=== PATIENT | female | born 1950 | race Caucasian/White ===

== ENCOUNTER 2022-03-24 07:56 | Outpatient (CLI) | payer MEDICARE, BC, SELFPAY ==
[2022-03-24 11:13] LABS: Glucose* 112 mg/dL (60-115)
[2022-03-29 16:01] LABS: Cholesterol* 181 mg/dL (90-199)
[2022-03-29 16:02] LABS: HDL Cholesterol* 87 mg/dL (>=50); LDL Cholesterol Calculated 77 mg/dL (<100); Triglycerides* 85 mg/dL (40-149)
== END 2022-03-24 07:57 | disposition home or self-care (01) ==
LOC: NFLDREF 07:57
PROVIDERS: PCP Family Medicine; Visit Provider Family Medicine
DX: Z00.00 Encounter for general adult medical examination without abnormal findings (principal); R73.03 Prediabetes; E78.5 Hyperlipidemia, unspecified
CPT/HCPCS: 80061; 82947

== ENCOUNTER 2022-10-04 13:25 | Outpatient (CLI) | payer MEDICARE, BC, SELFPAY ==
--- NOTE | 2022-10-04 13:40 | CRLHL7_ITS ---
For Patients: As a result of the Century Cures Act, medical imaging exams and procedure reports are released immediately into your electronic medical record. You may view this report before your referring provider. If you have questions, please contact your health care provider. BILATERAL SCREENING MAMMOGRAM WITH COMPUTER-AIDED DETECTION AND TOMOSYNTHESIS TECHNIQUE: CC and MLO views were obtained. These mammographic images have been obtained using full-field digital technique. These mammographic images were interpreted with the benefit of computer-aided detection. Breast Tomosynthesis was used in this interpretation. COMPARISON FILM: 09/08/21, 08/24/20, 08/22/19 FINDINGS: There are scattered areas of fibroglandular density IMPRESSION: There is no radiographic evidence for malignancy. ASSESSMENT: BI-RADS Category 2: Benign RECOMMENDATION: Routine screening mammogram in 1 year. A lay language report of this examination will be provided to the patient. Pierce Temple M.D. Diagnostic Radiologist [email or web address] [email or web address] Transcribed: 4:56 p.deana becerril/Dictated by: Pierce Temple MD @ 10/05/2022 10:02:00 AM (Electronically Signed)
== END 2022-10-04 13:26 | disposition home or self-care (01) ==
LOC: MAMMO 13:25
PROVIDERS: PCP Family Medicine; Visit Provider Family Medicine
DX: Z12.31 Encounter for screening mammogram for malignant neoplasm of breast (principal)
CPT/HCPCS: 77063; 77067

== ENCOUNTER 2023-03-08 13:38 | Outpatient (CLI) | payer MEDICARE, BC, SELFPAY | END 2023-03-08 13:39 | disposition home or self-care (01) | LOC: NFLDREF 03-17 08:12 | PROVIDERS: PCP Family Medicine; Referring Provider Family Medicine; Visit Provider Family Medicine | DX: R53.83 Other fatigue (principal) | CPT/HCPCS: 80048 ==

== ENCOUNTER 2023-05-30 07:30 | Outpatient (CLI) | payer MEDICARE, BC, SELFPAY | END 2023-05-30 07:31 | disposition home or self-care (01) | LOC: NFLDREF 06-01 06:19 | PROVIDERS: PCP Family Medicine; Referring Provider Family Medicine; Visit Provider Family Medicine | DX: E78.5 Hyperlipidemia, unspecified (principal); R73.03 Prediabetes | CPT/HCPCS: 80053; 80061 ==

== ENCOUNTER 2023-12-20 10:32 | Outpatient (CLI) | payer MEDICARE, BC, SELFPAY ==
--- OUTSIDE RECORDS SUMMARY | 2023-12-20 10:34 | XMS_ITS | Clinical Summary ---
Author Organization Formerly [facility] Address [address], [place] [address] Care Team Providers Care Scaler Name Role Phone No Primary/Referring, Phy Primary Care Provider Unavailable Source Comments You are receiving this document as you are listed as the primary care provider,follow-up provider, or the patient has been referred to you for consultation.This is in compliance with the Medicare and[facility] E[facility] Incentive Program,which states Providers who transition their patient to another setting of careor provider of care or refers their patient to another provider of care shouldprovide summary care record for each transition of care or referral. [employer] Allergies Active Allergy Reactions Criticality Noted Date Comments Dust Mite Extract Sneezing Low 11/26/2009 Medications Medication Sig Dispensed Refills Start Date End Date Status simvastatin (AKA ZOCOR) 20 MG tablet Take 20 mg by mouth daily at bedtime. Active cholecalciferol (VITAMIN D3) 1000 UNITS tablet Take 1 Tablet (1,000 Units) by mouth daily. Active B Complex Vitamins (B COMPLEX OR) Active fluocinonide (LIDEX) 0.05 % ointment Apply topically two times a day. 60 g 11 10/08/2018 Active fluocinonide (LIDEX) 0.05 % gel Apply topically two times a day. 60 g 11 06/28/2021 Active chlorhexidine gluconate (PERIDEX) 0.12 % solution Swish and spit 15 mL in mouth two times a day. 473 mL 01/20/2022 Active amoxicillin (AMOXIL) 500 MG capsule Take 1 Capsule (500 mg) by mouth three times a day. Take until gone 21 Capsule 02/22/2022 Active fluocinonide (LIDEX) 0.05 % gel Apply topically two times a day. 60 g 11 08/25/2022 Active Active Problems No known active problems Immunizations Name Administration Dates Next Due Pfizer Monovalent 12+ Purple Top 09/11/2020,07/28 Social History Tobacco Use Types Packs/Day Years Used Date Smoking Tobacco: Former Smokeless Tobacco: Never Alcohol Use Standard Drinks/Week Comments Yes 3 (1 standard drink = 0.6 oz pur e alcohol) Sex and Gender Information Value Date Recorded Sex Assigned at Not on file Gender Identity Not on file Sexual Orientation Not on file Last Filed Vital Signs Vital Sign Reading Time Taken Comments Blood Pressure 160/75 03/26/2021 9:10 AM CDT Pulse 61 08/25/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 Temperature 36.4 ??C (97.5 ??F) 03/26/2021 8:40 AM CD T Respiratory Rate 16 03/26/2021 9:10 AM CDT Oxygen Saturation 99% 03/26/2021 9:10 AM CDT Inhaled Oxygen Concentration - - Weight 73.5 kg (162 lb) 03/26/2021 6:25 AM CDT Height 175.3 cm (5' 9) 03/26/2021 6:25 AM CDT Body Mass Index 23.92 03/26/2021 6:25 AM CDT Plan of Treatment Health Maintenance Due Date Last Done Comments Hep C Screening (Preventive Services) 1950 Medicare Annual Wellness Visit 1950 Cholesterol 1994 Colon Cancer Screening Plan Due 03/06/2009 03/05/2009 Zoster/Shingles (2 of 3) 12/21/2011 10/26/2011 Dexa 2014 Mammogram 10/04/2014 10/04/2013 COVID-19 Vaccine ( season) 2023 03/22/2021, 09/11/2020, 08/21/2020 Influenza (Season Ended) 2024 021, 04/10/2020, 05/03/2019, Additional history exists DTaP/Tdap/Td (4 - Tdap) 03/31/2027 03/31/20 17, 03/31/2016, 01/26/2006 HepA Aged Out 02/05/1999, 07/30/1998 No lo nger eligible based on patient's age to complete this topic Pneumococcal 65+ Yrs Completed 07/17/2018, 03/31/20 17 HepB Aged Out No longer eligi ble based on patient's age to complete this topic Hib Aged Out No longer eligi ble based on patient's age to complete this topic IPV (Polio) Aged Out No longer eligi ble based on patient's age to complete this topic MCV4 Aged Out No longer eligi ble based on patient's age to complete this topic Medical Devices Implanted Type Area Machine Whitener Device Identifier Shelf Expiration Date Model / Serial / Lot Scr Canc Hex 4.0x35 P-Thrd - [id number] Implanted:Qty: 2 on 03/26/2021 by Endy Segura MD at [facility] [employer] Right: [employer] [id number] / 0 / 0 Scr Canc Hex 4.0x40 P-Thrd - [id number] Implanted:Qty: 1 on 03/26/2021 by Endy Segura MD at [employer] Right: [employer] [id number] / 0 / 0 Care Teams Scaler Relationship Specialty Start Date End Date No Primary/Referring, Phy PCP - General 01/16/18
--- OUTSIDE RECORDS SUMMARY | 2023-12-20 10:35 | XMS_ITS | Clinical Summary ---
Author Organization [employer] [facility] Address [place], [place] [address] Care Team Providers Care Size Stamper Name Role Phone Gretchen Sen Primary Care Provider Allergies No known active allergies Medications Medication Sig Dispensed Refills Start Date End Date Status MULTIVITAMIN TAB take 1 tablet by oral route once daily with food 0 05/03/2007 Active cholecalciferol (VITAMIN D) 1,000 unit capsule Take 2 capsules by mouth once daily. 0 2013 Active traZODone (DESYREL) 50 mg tabletIndications:Slee p pattern disturbance Take 0.5-1 tablets by mouth at bedtime if needed for Sleep. 45 tablet 3 03/31/2017 Active simvastatin (ZOCOR) 20 mg tabletIndications:Mixe d hyperlipidemia TAKE ONE TABLET BY MOUTH EVERY DAY IN THE EVENING 30 tablet 04/03/2018 Active Active Problems Problem Noted Date Diagnosed Date Sensorineural hearing loss, bilateral 04/29/2010 Family history of colonic polyps 03/05/2009 Overview: Colonoscopy 02/2009 normal repeat in 5 years Mixed hyperlipidemia 01/12/2007 Immunizations Name Administration Dates Next Due Hepatitis A (Adult) 02/05/1999,07/30/1998 Influenza, IIV3 (Age >=3 years) 04/09/2013,04/26,03/17/2010 Pneumococcal conj 13-Valent (Prevnar 13) 017 Tdap 03/31/2017,01/26/2006 Zoster (Zostavax-ZVL, live) 10/26/2011 Family History Medical History Relation Name Comments Hypertension Brother 1 and mother. Cancer Brother 2 stage IV Arthritis Father Arthritis Mother Heart Disease Mother multiple VA's in 80's, CHF. Hypertension Mother Cancer-colon Neg. Good Health Sister 1 Good Health Sister 2 Cancer-breast No Family History Relation Name Status Comments Brother 1 Brother 2 Father Mother Neg. Sister 1 Sister 2 Social History Tobacco Use Types Packs/Day Years Used Date Smoking Tobacco: Former Cigarettes Q uit: 06/26/1977 Smokeless Tobacco: Never Tobacco Cessation:Counseling Given: Yes Alcohol Use Standard Drinks/Week Comments Yes 3.3 (1 standard drin k = 0.6 oz pure alcohol) drinks red wine 4 times per week Sex and Gender Information Value Date Recorded Sex Assigned at Not on file Gender Identity Not on file Sexual Orientation Not on file Obstetrics History Para Term AB IAB SAB Ectopic Multiple Livin g Live Births 0 Last Filed Vital Signs Vital Sign Reading Time Taken Comments Blood Pressure 146/80 03/31/2017 4:04 PM CDT man ual Pulse 70 03/31/2017 2:52 PM CDT Temperature 37.1 ??C (98.7 ??F) 03/14/2016 8:44 AM CD T Respiratory Rate 18 11/20/2014 9:41 AM CDT Oxygen Saturation 94% 03/31/2017 2:52 PM CDT Inhaled Oxygen Concentration - - Weight 72.8 kg (160 lb 8 oz) 03/31/2017 2:52 PM CDT Height 175.3 cm (5' 9) 03/31/2017 2:52 PM CDT Body Mass Index 23.7 03/31/2017 2:52 PM CDT Plan of Treatment Health Maintenance Due Date Last Done Comments Zoster (shingles) series for age 50+ (2 of 3) 12/21/2011 10/26/2011 DEXA/DXA scan for age 65+ 2014 10/04/2013, Mammogram for age 45-75 01/30/2018 01/31/20 17, 01/22/2016, 10/27/2014, Additional history exists BMI (ht and wt on same day) for age 18+ 03/31/2018 03/31/2017, 03/14/2016 Depression screening for age 12+ 03/31/2018 03/31/20 17, 03/14/2016 Pneumococcal series for age 65+ (2 of 2 - PPSV23 or PCV20) 03/31/2018 03/31/2017 Colonoscopy through age 75 04/01/202104/01, 04/01/2016, 03/05/2009 Lipids for age 45-75 03/31/2022 03/31/2017, 03/14/2016, 10/31/2014, Additional history exists COVID-19 vaccine series ( season) 2023 Influenza for age 65+ 02/25/2024 04/09/2013 , 04/26/2011, 03/17/2010 Tetanus booster 03/31/2027 03/31/2017, 01/26/2006 Hepatitis C screening for ag e 18-79 Completed 10/04/2013 Tdap Completed 03/31/2017, 01/26/2006 Procedures Procedure Name Priority Date/Time Associated Diagnosis Comments LIPID PANEL W REFLEX MEASURED LDL Routine 03/31/2017 4:07 PM CDT HYPERLIPIDEMIA MIXED XR MAMMO BILAT SCREENING Routine 01/30/2017 9:18 AM CDT Visit for screening mammogram COLONOSCOPY 04/01/2016 10:24 AM CDT XR DXA BONE DENSITY 2 SITES AXIAL Routine 10/04/2013 1:35 PM CDT Screening for osteoporosis ANTI HCV Routine 10/04/2013 9:49 AM CDT Need for hepatitis C screening test from Last 3 Months or Most Recently Relevant to Health Maintenance Results * (ABNORMAL) LIPID PANEL W REFLEX MEASURED LDL (03/31/2017 4:07 PM CDT) CHOLESTEROL,TOTAL 204(H) 100 - 199 mg/dL 03/31/2017 7:48 PM CDT [facility] TRIGLYCERIDES 65 <150 mg/dL 03/31/2017 7:48 PM CDT [facility] HDL CHOLESTEROL 71 >40 mg/dL 7 7:48 PM CDT [facility] NON-HDL CHOLESTEROL 133 <145 mg/dl 03/31/2017 7:48 PM CDT [facility] CHOL/HDL RATIO 2.87 <4.50 03/31/2017 7:48 PM CDT [facility] LDL CHOLESTEROL 120 <=130 mg/dL 03/31/2017 7:48 PM CDT [facility] PROVIDER ORDERED STATUS RANDOM 03/31/2017 7:48 PM CDT [facility] Blood BLOOD SPECIMEN / Unknown Venipuncture / Unknown 03/31/2017 4:07 PM CDT 03/31/2017 4:07 PM CDT Gretchen Sen DO CHEMISTRY [facility] [address] [place] [address], [place] * XR MAMMO BILAT SCREENING (01/30/2017 9:18 AM CDT) Anatomical Region Laterality Modality BREASTS, Breast Left, Breast Right Bilateral Mammography Impressions 01/30/2017 12:20 PM CDT ??There is no radiographic evidence for malignancy. ??Recommend annual mammograms. A lay language report of this examination will be provided to the patient. MAMMOGRAM ASSESSMENT: ??ACR 1 Negative Narrative 01/30/2017 12:20 PM CDT XR MAMMO BILAT SCREENING [[id number]] CLINICAL HISTORY: ??This is an asymptomatic 66 y.o. patient. INDICATION FOR EXAM: Mammogram Screening. TECHNIQUE: CC & MLO views were obtained. ??This digital study was evaluated with the assistance of Computer-Aided Detection. COMPARISON FILM: Yes 01/22/16 [facility] 10/27/14 [facility] FINDINGS: ??Mammographically, the breast tissue is heterogeneously dense, which could obscure detection of small masses. There are no dominant masses, suspicious micro calcifications or areas of architectural distortion. Gretchen Sen DO MAMMO * COLONOSCOPY (04/01/2016 10:24 AM CDT) 04/01/2016 10:2 4 AM CDT Narrative 04/01/2016 10:24 AM CDT Patient Name: Marquita Grover ?Procedure Date: 04/01/2016 ? Gender: Female ? Date of : 1950 Admit Type: Outpatient ? Procedure: ?Colonoscopy Proceduralist: ?Negro Sotomayor MD Referring MD: ? Gretchen Sen Indications/Pre-Op Diagnosis: Screening for colorectal malignant neoplasm, ?Last colonoscopy: date unknown (unable to ?locate last colonoscopy report) Medications: ?Fentanyl 150 micrograms IV, Midazolam 4 mg IV ? Procedure Description: ? The patient had risks, benefits and alternatives explained to and gave ? informed consent. The patient had a stable cardiopulmonary status and ? judged an adequate candidate for conscious sedation. ? The PCF-Q290AL [id number] was passed through the anus and advanced to the ? cecum, identified by appendiceal orifice and ileocecal valve. The ? colonoscopy was performed without difficulty. The patient tolerated the ? procedure well. The quality of the bowel preparation was excellent. The ? ileocecal valve, appendiceal orifice, and rectum were photographed. ? Complications: ?No immediate complications. Estimated Blood Loss & Specimen: ? Estimated blood loss: none. Specimen collected - None ? Findings: ? The perianal and digital rectal examinations were normal. ? The entire examined colon appeared normal on direct and retroflexion ? views. ? Impressions/Post-Op Diagnosis: ? - The entire examined colon is normal on direct and retroflexion views. ? - No specimens collected. ? Recommendation: ? - Patient has a contact number available for emergencies. The signs and ? symptoms of potential delayed complications were discussed with the ? patient. Return to normal activities tomorrow. Written discharge ? instructions were provided to the patient. ? - Resume previous diet. ? - Continue present medications. ? - Repeat colonoscopy in 10 years for screening purposes. ? Negro Sotomayor MD 04/01/2016 12:29:02 PM This report has been signed electronically. Note Initiated On: 04/01/2016 10:24 AM Procedure Code(s): ?--- Professional --- ?G0121, Colorectal cancer screening; colonoscopy ?on individual not meeting criteria for high risk Diagnosis Code(s): ?--- Professional --- ?Z12.11, Encounter for screening for malignant ?neoplasm of colon CPT copyright 2015 [employer]. All rights reserved. The codes documented in this report are preliminary and upon tower technician review may be revised to meet current compliance requirements. Scope In: 12:03:43 PM Scope Withdrawal Time 0 hours 8 minutes 24 seconds Scope Out: 12:17:07 PM Procedure Note Negro Sotomayor MD - 04/01/2016 12:29 PM CDT Patient Name: Marquita Grover Procedure Date: 04/01/2016 Gender: Female Date of : 1950 Admit Type: Outpatient Procedure: Colonoscopy Proceduralist: Negro Sotomayor MD Referring MD: Gretchen Sen Indications/Pre-Op Diagnosis: Screening for colorectal malignant neoplasm, Last colonoscopy: date unknown (unable to locate last colonoscopy report) Medications: Fentanyl 150 micrograms IV, Midazolam 4 mgIV Procedure Description: The patient had risks, benefits and alternatives explained to andgave informed consent. The patient had a stable cardiopulmonary status and judged an adequate candidate for conscious sedation. The PCF-Q290AL [id number] was passed through the anus and advanced tothe cecum, identified by appendiceal orifice and ileocecal valve. The colonoscopy was performed without difficulty. The patient toleratedthe procedure well. The quality of the bowel preparation was excellent.The ileocecal valve, appendiceal orifice, and rectum were photographed. Complications: No immediate complications. Estimated Blood Loss & Specimen: Estimated blood loss: none. Specimen collected - None Findings: The perianal and digital rectal examinations were normal. The entire examined colon appeared normal on direct and retroflexion views. Impressions/Post-Op Diagnosis: - The entire examined colon is normal on direct and retroflexionviews. - No specimens collected. Recommendation: - Patient has a contact number available for emergencies. The signsand symptoms of potential delayed complications were discussed with the patient. Return to normal activities tomorrow. Written discharge instructions were provided to the patient. - Resume previous diet. - Continue present medications. - Repeat colonoscopy in 10 years for screening purposes. Negro Sotomayor MD 04/01/2016 12:29:02 PM This report has been signed electronically. Note Initiated On: 04/01/2016 10:24 AM Procedure Code(s): --- Professional --- G0121, Colorectal cancer screening;colonoscopy on individual not meeting criteria for highrisk Diagnosis Code(s): --- Professional --- Z12.11, Encounter for screening formalignant neoplasm of colon CPT copyright 2015 [employer]. All rights reserved. The codes documented in this report are preliminary and upon tower technician reviewmay be revised to meet current compliance requirements. Scope In: 12:03:43 PM Scope Withdrawal Time 0 hours 8 minutes 24 seconds Scope Out: 12:17:07 PM Negro Sotomayor MD PROCEDURE ORD * XR DXA BONE DENSITY 2 SITES (10/04/2013 1:35 PM CDT) Anatomical Region Laterality Modality Spine, HIPS, HIPL, HIPR Other Narrative 10/08/2013 7:28 PM CDT Please see scanned document for results of this study. Procedure Note Renata Elliott PA - 10/08/2013 Please see scanned document for results of this study. Gretchen Sen DO DEXA * ANTI HCV [[id number]] (10/04/2013 9:49 AM CDT) ANTI HCV Non-reacti ve [facility] Blood specimen (specimen) BLOOD SPECIMEN / Unknown 10/04/2013 9:49 AM CDT 10/04/2013 9:45 AM CDT Gretchen Sen DO SEND OUTS [facility] [place] [id number] [place] [address] from Last 3 Months or Most Recently Relevant to Health Maintenance Care Teams Size Stamper Relationship Specialty Start Date End Date Gretchen Sen DO PCP - General Family Practice 08/05/13
--- NOTE | 2023-12-20 10:45 | CRLHL7_ITS ---
For Patients: As a result of the Century Cures Act, medical imaging exams and procedure reports are released immediately into your electronic medical record. You may view this report before your referring provider. If you have questions, please contact your health care provider. BILATERAL SCREENING MAMMOGRAM WITH COMPUTER-AIDED DETECTION AND TOMOSYNTHESIS TECHNIQUE: CC and MLO views were obtained. These mammographic images have been obtained using full-field digital technique. These mammographic images were interpreted with the benefit of computer-aided detection. Breast Tomosynthesis was used in this interpretation. COMPARISON FILM: 10/04/22, 09/08/21, 08/24/20. FINDINGS: There are scattered areas of fibroglandular density. IMPRESSION: There is no radiographic evidence for malignancy. ASSESSMENT: BI-RADS Category 2: Benign RECOMMENDATION: Routine screening mammogram in 1 year. A lay language report of this examination will be provided to the patient. Pierce Temple M.D. Diagnostic Radiologist [email or web address] SP/Dictated by: Pierce Temple MD @ 12/26/2023 12:35:00 PM (Electronically Signed)
== END 2023-12-20 10:33 | disposition home or self-care (01) ==
LOC: MAMMO 10:33
PROVIDERS: PCP Family Medicine; Visit Provider Family Medicine
DX: Z12.31 Encounter for screening mammogram for malignant neoplasm of breast (principal)
CPT/HCPCS: 77063; 77067

== ENCOUNTER 2024-07-12 07:25 | Outpatient (CLI) | payer MEDICARE, SELFPAY | END 2024-07-12 07:26 | disposition home or self-care (01) | LOC: NFLDREF 07-13 20:20 | PROVIDERS: PCP Family Medicine; Referring Provider Family Medicine; Visit Provider Family Medicine | DX: E78.5 Hyperlipidemia, unspecified (principal); R73.03 Prediabetes | CPT/HCPCS: 80053; 80061 ==

== ENCOUNTER 2024-10-01 06:02 | Day surgery (SDC) | payer MEDICARE, BC, SELFPAY ==
[2024-10-01] VITALS (19 sets, daily range): BP systolic 106–175; BP diastolic 55–117; PULSE 54–105; RESP 14–16; TEMP 36.1–36.6; O2SAT 91–98; BMI 21.0
[2024-10-01] MEDS: ACETAMINOPHEN 500 MG TABLET 1000 MG PO ×2 (06:20→13:00)
[2024-10-01] MEDS: CELECOXIB 200 MG CAPSULE PO (06:20)
[2024-10-01] MEDS: OXYCODONE (CR) 10 MG TAB.ER.12H PO (06:20)
[2024-10-01] MEDS: LACTATED RINGERS 1000 ML 1,000 ML 100 ML IV ×3 (06:40→11:50)
[2024-10-01] MEDS: SODIUM CHLORIDE 0.9 % (FLUSH) 10 ML SYRINGE IVF (06:40)
[2024-10-01] MEDS: MIDAZOLAM HCL 1 MG/ML inj IVP (07:00)
[2024-10-01] MEDS: fentaNYL 100 MCG/2 ML inj IVP (07:00)
--- NOTE | 2024-10-01 07:01 | SUR.PREOP ---
TIME?OUT:?0659 PT/RN/MDA?VERIFICATION?OF?SURGICAL?SITE,?PROCEDURE,?AND?CONSENT OBTAINED?PRIOR?TO?INVASIVE?PROCEDURE.
[2024-10-01] MEDS: CEFAZOLIN 1 GM inj IVP (07:45)
--- NOTE | 2024-10-01 08:53 | CRLHL7_ITS ---
For Patients: As a result of the Cures Act, medical imaging exams and procedure reports are released immediately into your electronic medical record. You may view this report before your referring provider. If you have questions, please contact your health care provider. Indication: Postop TKA Technique: Two views of the left knee. Comparison: 05/01/2024. Findings: Postsurgical changes from left total knee arthroplasty. Subcutaneous air is favored to relate to recent surgery. Moderate joint effusion containing fluid and air. No acute fracture or hardware complication. Impression: Postsurgical changes from left total knee arthroplasty. Moderate joint effusion containing fluid and air. No acute fracture or hardware complication. Dictated by Sudhir Craig MD @ 10/01/2024 10:12:01 AM (Electronically Signed)
--- NOTE | 2024-10-01 08:56 | P.ORPRC_ITS ---
Procedure Note Date of procedure: 10/01/24 Procedure: PREOPERATIVE DIAGNOSIS: Left knee osteoarthritis POSTOPERATIVE DIAGNOSIS: Left knee osteoarthritis NAME OF OPERATION: Left total knee arthroplasty SURGEON: Reuben Raygoza MD ELECTRONIC EQUIPMENT INSTALLER: Fiordaliza Reveles PA-C, Sophia Jacobson MS ANESTHESIA: Spinal ESTIMATED BLOOD LOSS: 0 mL COMPLICATIONS: None SPECIMENS: None DRAINS: None PREOPERATIVE ANTIBIOTICS: Ancef 1 g IMPLANTS: 1. J&J Attune #4 posterior stabilized femur 2. #4 fixed-bearing tibia 3. #4 posterior stabilized, 5 mm fixed-bearing polyethylene 4. 38 patella INDICATIONS: The patient is a 74-year-old with a longstanding history of severe, unrelenting left knee pain secondary to end-stage (grade IV) left knee osteoarthritis. Despite appropriate nonoperative management, including activity modification, anti-inflammatories, xujd-yom-wuhxott pain medication, bracing, physical therapy, and injections they continue to have pain and disability. Operative intervention was offered. The risks, benefits and expected outcomes were discussed in detail. These included but were not limited to: Infection, bleeding, injury to blood vessel or nerve, venous thromboembolism. All questions were answered to their satisfaction. Use of an visitor service assistant was necessary throughout the case for patient positioning and safety, soft tissue retraction, and closure. PROCEDURE: Spinal anesthesia was administered. The patient was placed supine on the operating table. The visitor service assistant made sure the patient was positioned appropriately. The lower extremity was prepped and draped in the usual sterile fashion. The limb was exsanguinated with the Negro bandage. The pneumatic tourniquet was inflated to 300 mmHg. A standard anterior incision was made with the knee in flexion. Subcutaneous dissection was sharply taken through fascial layer #1. Full-thickness medial and lateral flaps were elevated. The visitor service assistant retracted the soft tissues and protected them throughout the case. A standard subvastus approach was made. The patella was subluxed. The infrapatellar fat pad was preserved. The menisci and cruciate ligaments were sharply d?brided. Marginal osteophytes were d?brided with the rongeur. The drill was used to penetrate the femoral canal. The canal was aspirated and irrigated with pulse lavage. The intramedullary femoral guide was placed for a 5-degree valgus cut, removing 10 mm off the distal femur. The saw was used to make the cut. Whitesides line and the trans epicondylar axis were marked. The femoral sizing guide was pinned onto the distal femur. Three degrees of external rotation nicely parallels the transepicondylar axis. Pins were placed for posterior referencing. The four-in-one cutting guide was pinned onto the distal femur. The anterior, posterior, and chamfer cuts were made. The visitor service assistant protected the collateral ligaments. The box cutting guide was pinned. The box cuts were made. The boxed trial was placed and was an excellent fit. Drill holes for the lugs were made. Attention was then turned to the proximal tibia. The extramedullary tibial guide was placed for a neutral varus/valgus cut with 5 degrees of posterior slope, removing 2 mm based off the medial tibial surface. The visitor service assistant protected the collateral ligaments and the neurovascular bundle. The saw was used to make the cut. Trial components were placed. The knee was nicely balanced in both flexion and extension. The trial components were removed. The tray was placed in appropriate rotation, parallel to our tibial cutting pins. It was pinned by the visitor service assistant and the drill and the punch were used. The tray was removed. The punch was used again. We placed a bone plug in the femoral canal. Attention was then turned to the patella. [place] patellar thickness was 21 mm. The lobster claw resection guide was used with the 7.5 mm doretha a saw blade was used as an extra doretha . The saw was used to make the cut. Drill holes were made by the visitor service assistant. The trial was placed and was an excellent fit. Cancellous surfaces were irrigated with pulse lavage and thoroughly dried by the visitor service assistant. We cemented the tibial component, then the femoral component. We impacted the 5 mm polyethylene onto the tibial tray. The knee was brought into full extension. We then cemented the patellar component. Excessive cement was removed. The cement was allowed to harden. The knee was taken through a range of motion and was found to be nicely balanced in both flexion and extension. The patella tracks centrally. The visitor service assistant did a three minute dilute Betadine solution soak. The visitor service assistant irrigated the wound with 3 liters of normal saline via pulse lavage. The visitor service assistant reapproximated the extensor mechanism with #1 Vicryl in an interrupted qybmrp-ck-kovva fashion. The visitor service assistant then ran the extensor mechanism with a #1 PDO Stratafix. The visitor service assistant closed the subcutaneous tissues with a 3-0 Stratafix and the skin with a running 3-0 Stratafix in a subcuticular fashion. Glue was used to seal the skin. The visitor service assistant placed a dry dressing. Sponge and needle counts were correct x2. The patient tolerated the procedure well. There were no apparent complications. They were carefully transferred to the hospital bed and taken to the postanesthesia care unit in satisfactory condition. PLAN: The patient will be mobilized with physical therapy. Aspirin will be used for DVT prophylaxis. They will be discharged to home once medically appropriate.
[2024-10-01] MEDS: TRANEXAMIC ACID 100 MG/ML INJ 1000 MG IV (09:00)
--- NOTE | 2024-10-01 09:42 | P.ANES_ITS ---
Anesthesia Charges Start Date/Time Anesthesia Start Date: 10/01/24 Anesthesia Start Time: 07:35 Stop Date/Time Anesthesia Stop Date: 10/01/24 Anesthesia Stop Time: 09:41 Coding CPT Codes CPT Codes: ANESTH KNEE ARTHROPLASTY - 27847 ([id number]) P2 - PATIENT W/MILD SYST DISEASE, QK - IBM MAINFRAME DEVELOPER 2-4 CNCRNT ANES PROC, QX - FUNERAL DRIVER SVC W/ MD MED DIRECTION
--- NOTE | 2024-10-01 09:42 | W.ANESCHARGE ---
Anesthesia Charges Start Date/Time Anesthesia Start Date: 10/01/24 Anesthesia Start Time: 07:35 Stop Date/Time Anesthesia Stop Date: 10/01/24 Anesthesia Stop Time: 09:41 Coding CPT Codes CPT Codes: ANESTH KNEE ARTHROPLASTY - 39923 ([id number]) P2 - PATIENT W/MILD SYST DISEASE, QK - CONSTRUCTION OR LEAK GANG LABORER 2-4 CNCRNT ANES PROC, QX - ELEVATOR REPAIRER HELPER SVC W/ MD MED DIRECTION
[2024-10-01] MEDS: fentaNYL 100 MCG/2 ML inj 50 MCG IVP (09:50)
--- NOTE | 2024-10-01 10:00 | P.NB_ITS ---
Nerve Block Nerve Block Time Seen by Provider: 07:03 Date Seen: 10/01/24 Type of block requested by surgeon for post-operative analgesia: geniculars Side: left Time out performed: Yes Verification of patient name: Yes Verification of date of : Yes Site marking: site marked Name of person performing procedure: David Continuous monitoring Was continuous monitoring of O2 sat, B/P, leaf sorter, recorded every 15 minutes?: Yes Procedure Checklist: sterile prep, needles and gloves Ultrasound guided. Images saved: Yes Medications given in 5ml increments after negative aspiration: Marcaine %: 0.25 mL: 9 Needle gauge: 25 Patient tolerated procedure well: Yes Block Charges Block Charge (with Pro Fee): Genicular Nerve Block
--- NOTE | 2024-10-01 10:00 | P.NB_ITS ---
Nerve Block Nerve Block Time Seen by Provider: 07:03 Date Seen: 10/01/24 Type of block requested by surgeon for post-operative analgesia: adductor canal Side: left Time out performed: Yes Verification of patient name: Yes Verification of date of : Yes Site marking: site marked Name of person performing procedure: David Continuous monitoring Was continuous monitoring of O2 sat, B/P, front desk monitor, recorded every 15 minutes?: Yes Procedure Checklist: sterile prep, needles and gloves Ultrasound guided. Images saved: Yes Medications given in 5ml increments after negative aspiration: Marcaine %: 0.25 mL: 15 Needle gauge: 20 Precedex (mcg): 25 Patient tolerated procedure well: Yes Block Charges Block Charge (with Pro Fee): Femoral Nerve Use of Ultrasound Machine for Block: Yes- US Guidance/pain block
--- NOTE | 2024-10-01 10:00 | W.ANESCHARGE ---
Anesthesia Charges Start Date/Time Anesthesia Start Date: 10/01/24 Anesthesia Start Time: 07:35 Stop Date/Time Anesthesia Stop Date: 10/01/24 Anesthesia Stop Time: 09:41 Summary Extremes of Age - Over 70 or under 1: MDA Coding CPT Codes CPT Codes: ANESTH KNEE ARTHROPLASTY - 24268 ([id number]) QK - PLAN EXAMINER 2-4 CNCRNT ANES PROC, QX - TRANSCRIBING MACHINE MECHANIC SVC W/ MD MED DIRECTION, P2 - PATIENT W/MILD SYST DISEASE Additional Codes: Summary - Extremes of Age - Over 70 or under 1: MDA ([id number])
[2024-10-01] MEDS: ONDANSETRON 2 MG/ML inj 4 MG IVP (11:20)
== END 2024-10-01 14:07 | disposition home or self-care (01) ==
LOC: OR 06:04
PROVIDERS: PCP Family Medicine; Visit Provider Orthopaedic Surgery
PROC: (CPT 27447; principal; 2024-10-01 07:15)
DX: M17.12 Unilateral primary osteoarthritis, left knee (principal); G89.18 Other acute postprocedural pain
CPT/HCPCS: 27447; 01402; 64447; 64454; 73560; 76942; 97110; 97116; 97161; 99100; A9270; C1776; J0665; J0690; J1100; J2250; J2371; J2405; J2704; J3010; J7120

== ENCOUNTER 2024-11-14 11:15 | Outpatient (RCR) | payer MEDICARE, BC, SELFPAY ==
--- NOTE | 2024-08-21 13:35 | PT.OPEX ---
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 Raygoza Subjective Preferred Name Kellie Subjective Patient is a 74 year old female who presents to physical therapy for her pre- op prior to left TKA on 10/01/24 . She states that she has been having pain for about 15 years and it got worse in March. She states that she is having her right knee done in the fall. Significant past medical history includes right foot surgery a few years ago. Pain Comments Today: 4/10 on a 0-10 pain scale with 10 = extreme pain At its worst: 8/10 At its best: 3/10 Current Work Status Retired Occupation retired nurse Precautions Weight Bearing Status Full Weight Bearing Therapy Limitations/Systems Review Not Limited Objective Other/Pertinent Objective GAIT/FUNCTIONAL MOBILITY Independent KNEE ROM Extension/Flexion: R 0-120, L 0-120 HIP ROM Grossly tested WNL LLE MMT: Hip flexion: R 4+/5 L 4+/5 Hip abduction: R 4+/5 L 4+/5 Hip extension: R 4+/5 L 4+/5 Knee flexion: R 4+/5 L 4+/5 Knee extension: R 4+/5 L 4+/5 Reviewed/demonstrated on frequency to perform HEP post operatively including: long sitting quad ankle pumps supine heel slide with strap supine quad sets supine SAQ SLR with quad set seated long arc quad seated knee flexion AAROM supine knee extension stretch on towel roll Extensive discussion and education on what to expect post operatively. Time was spent discussing home modifications, Assistive devices, pain control, fall prevention, hospital stay time line, and assist needed for activities post surgically. Pt questions were answered and demonstrated understanding. Assessment Assessment/Impression Patient is a 74 year old female who presents to physical therapy for her pre- op prior to left TKA on 10/01/24 .Patient also has notable objective findings including limited ROM, tenderness to palpation, and decreased strength which are also likely contributing to the problem. Patient is a good candidate for skilled therapy to target deficits described above. Skilled PT intervention is necessary for use of therapeutic exercise manual therapy, neuromuscular re- education, gait training, and therapeutic activity. Functional impairments include difficulty with: standing, walking, exercising, ADLs. See appropriate sections of PT eval for complete list of goals and POC. D/C plan and criteria is for pt to achieve the goals as listed below or until max rehab potential is met. Pt was agreeable with plan of care and goals established. Primary Functional Limitations standing walking exercising ADLS Plan of Care Rehabilitation Potential Good Physical Therapy Goals Within 10-12 weeks: 1) Pt will improve knee AROM at least 0 to 120 for improved sit to stand transfers 2) Pt will demonstrate negative extensor lag during straight leg raise exercise with ability to complete at least 15 reps with 5 sec hold to improve strength for ambulation 3) Patient will demonstrate/ report ability to walk for 15 minutes w/SPC with pain level <1/10, to allow for community and household ambulation. 4) Pt will be indep with HEP for chcf management of pain/symptoms 5) Patient will ascend/descend at least 10 steps using single rail and reciprocal pattern to improve ease of mobility at home/community 7) Patient will demonstrate/ report ability to walk for 15 minutes w/o AD with pain level <1/10, to allow for community and household ambulation. Coordination/Communication With Referral Source Treatment Plan/Direct Interventions Gait Training,Manual Therapy, Neuromuscular Re-ed, Therapeutic Activities, Therapeutic Exercises Patient Will Be Discharged From Therapy Independently Progressing Evaluation Billing Untimed Code Treatment Minutes 30 Complexity Low Certification Information Provider Signature Required Yes Provider Signature Shows Agreement With POC & Medical Necessity Physician NPI Number Write NPI# Here Physician Comment/Change : Physician Signature & Date Requested Please Sign/Date Here
== END 2024-12-03 12:38 | disposition home or self-care (01) ==
PROVIDERS: PCP Family Medicine; Visit Provider Orthopaedic Surgery
DX: M17.12 Unilateral primary osteoarthritis, left knee (principal); Z96.652 Presence of left artificial knee joint; Z51.89 Encounter for other specified aftercare
CPT/HCPCS: 97110; 97161

== ENCOUNTER 2024-11-20 12:44 | Outpatient (CLI) | payer MEDICARE, BC, SELFPAY ==
--- NOTE | 2024-11-20 13:00 | CRLHL7_ITS ---
For Patients: As a result of the Century Cures Act, medical imaging exams and procedure reports are released immediately into your electronic medical record. You may view this report before your referring provider. If you have questions, please contact your health care provider. XR DXA BONE MINERAL DENSITY (BMD) Current height (in): 69.0. Weight (lb): 144.0. Menopause age: -. Ethnicity: White. Reason for exam: Asymptomatic menopausal state. 1. Have you had a previous hip or vertebral fracture? No. 2. Have you had any fractures during your adult life which did not result from significant trauma (e.g., auto accident)? No. 3. Did either of your parents have a hip fracture? No. 4. Do you smoke? No. 5. Have you ever taken Glucocorticoids? No. 6. Do you have rheumatoid arthritis? No. 7. Do you have secondary osteoporosis? No. 8. Do you drink 3 or more alcoholic drinks per day? No. 9. Are you being treated for osteoporosis? No. 10. Have you ever taken any of the following medications: Actonel, Evista, Fosamax, Miacalcin, Reclast, Boniva, Forteo, HRT (i.e. estrogen/hormone therapy), Protelos, Prolia, Vitamin D, Calcium, other ??? please specify. ANSWER: Yes, vitamin D. 11. Do you have any of the following medical conditions: Anorexia or bulimia, asthma or emphysema, end stage renal disease, hyperparathyroidism, any seizure disorders, cancer, inflammatory bowel diseases, hysterectomy, other ??? please specify. ANSWER: No. 12. What was your maximum height (inches)? 70.5. 13. Do you perform weight bearing exercise regularly? No. 14. Do you regularly consume dairy products? Yes. 15. Do you drink caffeinated beverages? Yes. 16. At what age did your period start? 15. 17. Are you premenopausal? No. 18. How many full-term pregnancies have you had? 0. 19. Have you ever missed your period for more than 6 months in a row (not including or menopause)? No. TECHNIQUE: Bone mineral density study was performed using the [facility]. FINDINGS: The results of the study expressed as bone mineral density (BMD) are as follows: Lumbar spine L1 to L4: BMD: 1.174 g/cm2. T-score: 1.2. Z-score: 1.6 Neck Left: BMD: 0.776 g/cm2. T-score: -0.7. Z-score: 1.4 Right: BMD: 0.795 g/cm2. T-score: -0.5. Z-score: 1.6 Total Left: BMD: 0.857 g/cm2. T-score: -0.7. Z-score: 1.1 Right: BMD: 0.871 g/cm2. T-score: -0.6. Z-score: 1.2 IMPRESSION: Normal bone density. *Comparison exams done prior to 11/2019 were performed on different unit, [facility]. COMPARISON: Compared with scan of 08/09/2018, the bone mineral density has decreased by 0.7 percent at the spine and decreased by 8.7 percent at the hip. Pierce Temple M.D. Diagnostic Radiologist [email or web address] Transcribed: 9:36 am DW/Dictated by: Pierce Temple MD @ 11/21/2024 8:53:00 AM (Electronically Signed)
== END 2024-11-20 12:45 | disposition home or self-care (01) ==
LOC: RAD 12:44
PROVIDERS: PCP Family Medicine; Visit Provider Family Medicine
DX: Z78.0 Asymptomatic menopausal state (principal)
CPT/HCPCS: 77080

== ENCOUNTER 2024-12-24 09:04 | Outpatient (CLI) | payer MEDICARE, BC, SELFPAY ==
--- NOTE | 2024-12-24 09:15 | CRLHL7_ITS ---
For Patients: As a result of the Century Cures Act, medical imaging exams and procedure reports are released immediately into your electronic medical record. You may view this report before your referring provider. If you have questions, please contact your health care provider. INDICATION: BILATERAL SCREENING MAMMOGRAM, ASYMPTOMATIC 74 Y/O FEMALE COMPARISON: 12/20/2023, 10/04/2022, 09/08/2021 TECHNIQUE: Digital mammogram in CC and MLO projections including computer-aided detection (CAD) and tomosynthesis. BREAST COMPOSITION: There are scattered areas of fibroglandular density. FINDINGS: No suspicious findings. ASSESSMENT: BI-RADS 2 Benign RECOMMENDATION: Annual screening mammogram. A lay language report of this examination will be provided to the patient. Dictated by: Pierce Temple MD @ 12/24/2024 10:11:32 (Electronically Signed)
--- OUTSIDE RECORDS SUMMARY | 2024-12-25 00:35 | XMS_ITS | Clinical Summary ---
Author Organization [facility] Address [address], [place] [address] Care Team Providers Care Boxing Promoter Name Role Phone No Primary/Referring, Phy Primary Care Provider Unavailable Source Comments You are receiving this document as you are listed as the primary care provider,follow-up provider, or the patient has been referred to you for consultation.This is in compliance with the Medicare and[facility] E[facility] Incentive Program,which states Providers who transition their patient to another setting of careor provider of care or refers their patient to another provider of care shouldprovide summary care record for each transition of care or referral. [facility] Allergies Active Allergy Reactions Criticality Noted Date Comments Dust Mite Extract Sneezing Low 11/26/2009 Medications simvastatin (AKA ZOCOR) 20 MG tablet Take 20 mg by mouth daily at bedtime. Active cholecalciferol (VITAMIN D3) 1000 UNITS tablet Take 1 Tablet (1,000 Units) by mouth daily. Active B Complex Vitamins (B COMPLEX OR) Active fluocinonide (LIDEX) 0.05 % ointment Apply topically two times a day. 60 g 11 9 Active fluocinonide (LIDEX) 0.05 % gel Apply topically two times a day. 60 g 11 2 Active chlorhexidine gluconate (PERIDEX) 0.12 % solution Swish and spit 15 mL in mouth two times a day. 473 mL 2 Active amoxicillin (AMOXIL) 500 MG capsule Take 1 Capsule (500 mg) by mouth three times a day. Take until gone 21 Capsule 2 Active fluocinonide (LIDEX) 0.05 % gel Apply topically two times a day. 60 g 11 Active Active Problems No known active problems Immunizations Immunization Administration Dates Next Due Pfizer Monovalent 12+ Purple Top 09/11/2020,07/28 Social History Tobacco Use Types Packs/Day Years Used Date Smoking Tobacco: Former Smokeless Tobacco: Never Alcohol Use Standard Drinks/Week Comments Yes 3 (1 standard drink = 0.6 oz pur e alcohol) Comments No Sex and Gender Information Value Date Recorded Sex Assigned at Not on file Legal Sex Female 3:39 AM CDT Gender Identity Not on file Sexual Orientation Not on file Last Filed Vital Signs Vital Sign Reading Time Taken Comments Blood Pressure 160/75 03/26/2021 9:10 AM CDT Pulse 61 08/25/2022 10:29 AM VISUAL BASIC PROGRAMMER Temperature 36.4 C (97.5 F) 03/26/2021 8:40 AM CDT Respiratory Rate 16 03/26/2021 9:10 AM CDT [...] Services) 1950 Medicare Annual Wellness Visit 1950 Colon Cancer Screening Plan Due 03/06/2009 03/05/2009 Zoster/Shingles Vaccine (2 of 3) 12/21/2011 10/26/2011 Dexa 2014 Mammogram 10/04/2014 10/04/2013 COVID-19 Vaccine ( - season) 2024 03/22/2021, 09/11/2020, 08/21/2020 RSV Vaccine (1 - 1-dose 75+ series) 2024 Influenza Vaccine (Season Ended) 2025 03/22/2021, 04/10/2020, 05/03/2019, Additional history exists DTaP/Tdap/Td Vaccine (4 - Tdap) 03/31/2027 03/31/2017, 03/31/2016, 01/26/2006 HepA Vaccine Aged Out 02/05/1999, 07/30/1998 No lo nger eligible based on patient's age to complete this topic Pneumococcal Vaccine 50+ Yrs Completed 07/17/2018, 03/31/2017 HepB Vaccine Aged Out No longer eligi ble based on patient's age to complete this topic Hib Vaccine Aged Out No longer eligi ble based on patient's age to complete this topic MCV4 Vaccine Aged Out No longer eligi ble based on patient's age to complete this topic Meningococcal B Vaccine Aged Out No l onger eligible based on patient's age to complete this topic Medical Devices Implanted Type Area Roving Winder Device Identifier Shelf Expiration Date Model / Serial / Lot Scr Canc Hex 4.0x35 P-Thrd - [id number] Implanted:Qty: 2 on 03/26/2021 by nEdy Segura MD at [facility] [employer] Right: [employer] [id number] / 0 / 0 Scr Canc Hex 4.0x40 P-Thrd - [id number] Implanted:Qty: 1 on 03/26/2021 by Endy Segura MD at [facility] Right: [employer] [id number] / 0 / 0 Insurance MEDIC[place] [facility] [facility] [place] [facility] [place] [place] [facility] [facility] [facility]ICARE [facility] [place] [place] [facility] BLUE Care Teams Boxing Promoter Relationship Specialty Start Date End Date No Primary/Referring, Phy PCP - General 01/16/18
--- OUTSIDE RECORDS SUMMARY | 2024-12-25 00:35 | XMS_ITS | Clinical Summary ---
Author Organization [facility] Address [address] [place] [id number] Care Team Providers Care Shot Dropper Name Role Phone Gretchen Sen DO Primary Care Provider Allergies No known active allergies Medications MULTIVITAMIN TAB take 1 tablet by oral route once daily with food 0 7 Active cholecalciferol (VITAMIN D) 1,000 unit capsule Take 2 capsules by mouth once daily. 0 4 Active traZODone (DESYREL) 50 mg tabletIndications:S leep pattern disturbance Take 0.5-1 tablets by mouth at bedtime if needed for Sleep. 45 tablet 3 7 Active simvastatin (ZOCOR) 20 mg tabletIndications:M ixed hyperlipidemia TAKE ONE TABLET BY MOUTH EVERY DAY IN THE EVENING 30 tablet 8 Active Active Problems Problem Noted Date Diagnosed Date Sensorineural hearing loss, bilateral 04/29/2010 Family history of colonic polyps 03/05/2009 Overview (03/05/2009): Colonoscopy 02/2009 normal repeat in 5 years Mixed hyperlipidemia 01/12/2007 Immunizations Immunization Administration Dates Next Due Hepatitis A (Adult) 02/05/1999,07/30/1998 Influenza, IIV3 (Age >=3 years) 04/09/2013,04/26,03/17/2010 Pneumococcal conj 13-Valent (Prevnar 13) 017 Tdap 03/31/2017,01/26/2006 Zoster (Zostavax-ZVL, live) 10/26/2011 Family History Medical History Relation Name Comments Hypertension Brother 1 and mother. Cancer Brother 2 stage IV Arthritis Father Arthritis Mother Heart Disease Mother multiple PA's in 80's, CHF. Hypertension Mother Cancer-colon Neg. 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 on file Not on file Not on file Obstetrics History Para Term AB IAB SAB Ectopic Multiple Livin g Live Births 0 Last Filed Vital Signs Vital Sign Reading Time Taken Comments Blood Pressure 146/80 03/31/2017 4:04 PM CDT man ual Pulse 70 03/31/2017 2:52 PM CDT Temperature 37.1 C (98.7 F) 03/14/2016 8:44 AM CDT Respiratory Rate 18 11/20/2014 9:41 AM CDT [...] DEXA/DXA scan for age 65+ 2014 10/04/2013, BMI (ht and wt on same day) for age 18+ 03/31/2018 03/31/2017, 03/14/2016 Depression screening for age 12+ 03/31/2018 03/31/2017, 03/14/2016 Pneumococcal series for age 50+ (2 of 2 - PPSV23) 03/31/2018 03/31/2017 Colonoscopy through age 75 04/01/202104/01, 04/01/2016, 03/05/2009 Lipids for age 45-75 03/31/2022 03/31/2017, 03/14/2016, 10/31/2014, Additional history exists COVID-19 vaccine series ( - 2023-25 season) 2024 RSV vaccine for adults or (1 - 1-dose 75+ series) 2024 Influenza Vaccine (#1) 2025 3, 04/26/2011, 03/17/2010 Tetanus booster 03/31/2027 03/31/2017, 01/26/2006 Hepatitis C screening for age 18-79 Completed 10/04/2013 Hepatitis B series for 19+ Aged Out N o longer eligible based on patient's age to complete this topic Procedures Procedure Name Priority Date/Time Associated Diagnosis Comments LIPID PANEL W REFLEX MEASURED LDL Routine 03/31/2017 4:07 PM CDT HYPERLIPIDEMIA MIXED COLONOSCOPY 04/01/2016 10:24 AM CDT XR DXA [...] - 199 mg/dL 03/31/2017 7:48 PM CDT [facility] TRIGLYCERIDES 65 <150 mg/dL 03/31/2017 7:48 PM CDT [facility] HDL CHOLESTEROL 71 >40 mg/dL 7 7:48 PM CDT [facility] NON-HDL CHOLESTEROL 133 <145 mg/dl 03/31/2017 7:48 PM CDT [facility] CHOL/HDL RATIO 2.87 <4.50 03/31/2017 7:48 PM CDT [facility] LDL CHOLESTEROL 120 <=130 mg/dL 03/31/2017 7:48 PM CDT [facility] PROVIDER ORDERED STATUS RANDOM 03/31/2017 7:48 PM CDT [facility] Blood BLOOD SPECIMEN / Unknown Venipuncture / Unknown 03/31/2017 4:07 PM CDT 03/31/2017 4:07 PM CDT us Gretchen Sen DO CHEMISTRY Final Resul t [facility] [address] [place] [address], [place] * COLONOSCOPY (04/01/2016 10:24 AM CDT) 04/01/2016 10:2 4 AM CDT Narrative 04/01/2016 10:24 AM CDT Patient Name: Marquita Grover Procedure Date: 04/01/2016 Gender: Female Date of : 1950 Admit Type: Outpatient Procedure: Colonoscopy Proceduralist: Negro Sotomayor MD Referring MD: Gretchen Sen Indications/Pre-Op Diagnosis: Screening for colorectal malignant neoplasm, Last colonoscopy: date unknown (unable to locate last colonoscopy report) Medications: Fentanyl 150 micrograms IV, Midazolam 4 mg IV Procedure Description: The patient had risks, benefits and alternatives explained to and gave informed consent. The patient had a stable cardiopulmonary status and judged an adequate candidate for conscious sedation. The PCF-Q290AL [id number] was passed through the anus and advanced to the cecum, identified by appendiceal orifice and ileocecal valve. The colonoscopy was performed without difficulty. The patient tolerated the procedure well. The quality of the bowel preparation was excellent. The ileocecal valve, appendiceal orifice, and rectum were photographed. Complications: No immediate complications. Estimated Blood Loss & Specimen: Estimated blood loss: none. Specimen collected - None Findings: The perianal and digital rectal examinations were normal. The entire examined colon appeared normal on direct and retroflexion views. Impressions/Post-Op Diagnosis: - The entire examined colon is normal on direct and retroflexion views. - No specimens collected. Recommendation: - Patient has a contact number available for emergencies. The signs and symptoms of potential delayed complications were discussed [...] Code(s): --- Professional --- G0121, Colorectal cancer screening; colonoscopy on individual not meeting criteria for high risk Diagnosis Code(s): --- Professional --- Z12.11, Encounter for screening for malignant neoplasm of colon CPT copyright 2015 [employer]. All rights reserved. The codes documented in this report are preliminary and upon desizing machine operator review may be revised to meet current [...] adequate candidate for conscious sedation. The PCF-Q290AL [id number] was passed through the anus and advanced [...] formalignant neoplasm of colon CPT copyright 2015 [employer]. All rights reserved. The codes documented in this report are preliminary and upon desizing machine operator reviewmay be revised to meet current compliance requirements. Scope In: 12:03:43 PM Scope Withdrawal Time 0 hours 8 minutes 24 seconds Scope Out: 12:17:07 PM Negro Sotomayor MD PROCEDURE ORD Final Res ult * XR DXA BONE DENSITY 2 SITES (10/04/2013 1:35 PM CDT) Anatomical Region Laterality Modality Spine, HIPS, HIPL, HIPR Other Narrative 10/08/2013 7:28 PM CDT Please see scanned document for results of this study. Procedure Note Renata Elliott PA - 10/08/2013 Please see scanned document for results of this study. Gretchen Sen DO DEXA Final Resul t * ANTI HCV [[id number]] (10/04/2013 9:49 AM CDT) ANTI HCV Non-reacti ve [facility] Blood specimen (specimen) BLOOD SPECIMEN / Unknown 10/04/2013 9:49 AM CDT 10/04/2013 9:45 AM CDT Gretchen Sen DO SEND OUTS Final Resul t [facility] [place] ZIP [id number] [place] [address] from Last 3 Months or Most Recently Relevant to Health Maintenance Insurance [employer] Care Teams Shot Dropper Relationship Specialty Start Date End Date Gretchen Sen DO PCP - General Family Practice 08/05/13
== END 2024-12-24 09:05 | disposition home or self-care (01) ==
LOC: MAMMO 09:05
PROVIDERS: PCP Family Medicine; Visit Provider Family Medicine
DX: Z12.31 Encounter for screening mammogram for malignant neoplasm of breast (principal)
CPT/HCPCS: 77063; 77067